=== PATIENT | male | born 2000 | race Caucasian/White ===

== ENCOUNTER 2022-10-12 10:43 | Emergency (ER) | payer MEDICAID ==
[~2022-10-12] VITALS: Ht 175.3 cm; Wt 81.8 kg
[2022-10-12 11:06] VITALS: BP 118/79
[2022-10-12] MEDS ORDERED: LIDOcaine 1% W/epiNEPHrine 1:100,000 20ml vial SQ ONE (14:45)
[2022-10-12] MEDS ORDERED: sulfamethoxazole/trimethoprim DS (800/160mg) tablet PO ONE (14:45)
[2022-10-12] MEDS ORDERED: cephalexin 500mg capsule PO ONE (14:45)
[2022-10-12] MEDS ORDERED: CEPH500C81 PO (15:00)
[2022-10-12] MEDS ORDERED: SULF1TAB49 PO (15:00)
== END 2022-10-12 15:38 | disposition home or self-care (01) ==
LOC: ER 10:43
DX: L02.214 Cutaneous abscess of groin (principal); Z88.0 Allergy status to penicillin; Z79.899 Other long term (current) drug therapy; Z79.2 Long term (current) use of antibiotics
CPT/HCPCS: 99283; A6449